=== PATIENT | female | born 1980 | race Two or more races ===

== ENCOUNTER 2021-04-21 18:14 | Emergency (ER) | payer SELFPAY ==
[~2021-04-21] VITALS: Ht 165.1 cm; Wt 90.9 kg
[2021-04-21] MEDS ORDERED: ACETAMINOPHEN 325 MG TABLET. PO ONE (20:15)
[2021-04-21 20:17] LABS: BILIRUBIN,URINE NEGATIVE (NEG); CLARITY,URINE CLOUDY; COLOR,URINE YELLOW; NITRITE,URINE NEGATIVE (NEG); PH,URINE 6.5 (<5.0-8.0); PROTEIN,URINE NEGATIVE (NEG-TRACE)
[2021-04-21 20:23] LABS: BACTERIA,URINE MANY /HPF (0-FEW)
[2021-04-21 20:24] LABS: RBC,URINE OCC /HPF (0-2); WBC,URINE OCC /HPF (0-4)
--- NOTE | 2021-04-21 20:37 | PHYS DOC ---
Past Medical History Past Surgical History: No Surgical History Smoking Status: Never Smoker Alcohol Use: None General Adult EDM: Chief Complaint: PELVIC PAIN HPI: HPI: Patient is a 40 year old female who presents with pelvic pain that began yesterday. Patient rates her pain currently 7/10 intermittent cramping. Patient states her symptoms began gradually and are gotten worse since yesterday. She reports her last menstrual period as 01/21/2021 and believes she may be . She additionally states she has some white vaginal discharge that is without odor and normal in consistency. She denies fever, chills, vaginal spotting, bleeding, itching, dyspareunia and dysuria, but reports urgency and frequency. She has not taken any medications in effort to relieve her pain, but report walking exacerbates her pain. Patient has no other complaints at this time. Review of Systems: Review of Systems: Constitutional: See HPI Respiratory: Denies cough or shortness of breath. Cardiovascular: Denies chest pain or edema. GI: Denies abdominal pain, nausea, vomiting, bloody stools or diarrhea. : See HPI Heart Score: C/O Chest Pain: No Current Medications: Current Medications Medications (Trade) Dose Ordered Sig/Sadiq Start Time Stop Time Status Last Admin Dose Admin Acetaminophen (Tylenol) 650 mg 1X ONCE 04/21/21 20:15 04/21/21 20:16 DC 04/21/21 20:18 650 MG Allergies: Allergies: Allergies Coded Allergies Type Severity Reaction Last Updated Verified No Known Drug Allergies 04/21/21 No Physical Exam: PE: Constitutional: Well developed, well nourished, no acute distress, non-toxic appearance. Cardiovascular: Heart rate regular rhythm, no murmur. Lungs & Thorax: Bilateral breath sounds clear to auscultation. Abdomen: Bowel sounds normal, soft, no tenderness, no masses, no pulsatile masses. : Full pelvic exam deferred. Mons pubis without lesion and apropriate, symmetrical hair growth pattern. Labia majora and minora without lesion or rodri thema. Minimal white discharge noted at vaginal introitus without malodor. Skin: Warm, dry, no erythema, no rash. Back: No tenderness, no CVA tenderness. Extremities: No tenderness, no cyanosis, no clubbing, ROM intact, no edema. Neurologic: Alert and oriented x3, normal motor function, normal sensory function, no focal deficits noted. Current Patient Data: Labs: Laboratory Tests Test 04/21/21 19:45 04/21/21 19:53 Urine Collection Type Unknown Urine Color Yellow Urine Clarity Cloudy Urine pH 6.5 (<5.0-8.0) Urine Specific [place] 1.020 (1.000-1.030) Urine Protein Negative mg/dL (NEG-TRACE) Urine Glucose (UA) 250 mg/dL (NEG) Urine Ketones (Stick) Negative mg/dL (NEG) Urine Blood Trace (NEG) Urine Nitrite Negative (NEG) Urine Bilirubin Negative (NEG) Urine Urobilinogen Dipstick 2.0 mg/dL (0.2 mg/dL) Urine Leukocyte Esterase Negative (NEG) Urine RBC Occ /HPF (0-2) Urine WBC Occ /HPF (0-4) Urine Squamous Epithelial Cells Mod /LPF Urine Bacteria Many /HPF (0-FEW) Urine Mucus Mod /LPF POC Urine HCG, Qualitative Hcg positive (Negative) Procedure Result WET PREP Final YEAST NONE SEEN TRICHOMONAS NONE SEEN CLUE CELLS CLUE CELLS PRESENT ALTERED PAMELA ALTERED PAMELA PRESENT SUGGESTIVE OF BACTERIAL VAGINOSIS WBCS OCCASIONAL SQUAMOUS EPS MANY Vital Signs: Vital Signs Date Time Temp Pulse Resp B/P (MAP) Pulse Ox O2 Delivery O2 Flow Rate FiO2 04/21/21 19:37 98.1 97 20 114/82 (93) 99 Room Air 98.1 Radiology/Procedures: Radiology/Procedures: PROCEDURE: TRANSVAGINAL US TRANSVAGINAL History: Reason: PELVIC PAIN / Spl. Instructions: / History: Comparison: None. Technique: Grayscale and color Doppler imaging of the pelvis was performed using transabdominal and transvaginal technique. Findings: The uterus measures 10.8 x 6.3 x 6.4 cm. Single intrauterine gestational sac with regular appearance. Yolk sac is identified. pole is identified with crown-rump length 3.1 cm. Estimated gestational age by ultrasound 10 weeks 0 days. heart rate 178 bpm. No perigestational fluid collection. Estimated date of completion by ultrasound November 17, 2021. Right ovary measures 3.7 x 2.8 x 1.8 cm. Normal Doppler flow to the right ovary. Left ovary not identified due to positioning and overlying structures IMPRESSION: 1. Single intrauterine with gestational age 10 weeks and heart rate 178 bpm. Electronically signed by: Semaj Thomas DO (04/21/2021 9:45 PM) [facility] Course & Med Decision Making: Course & Med Decision Making Pertinent Labs and Imaging studies reviewed. (See chart for details) Patient work-up today confirmed patient suspected . According to reported last menstrual period estimation, gestational age is 12 weeks 6 days. Additionally, wet prep shows BV. Patient will be reassured that the is confirmed with adequate growth and heart rate. She will be prescribed with metronidazole to treat bacterial vaginosis. She will need to follow with instructional designer for care. Patient states that she called the [facility], and they did not have an appointment for the next month. She will also be provided with contact information for instructional designer here at [facility] as well as contact information for the [facility] clinics. Patient understands and is agreeable to discharge plan. Dragon Disclaimer: Arn[place] Disclaimer: This electronic medical record was generated, in whole or in part, using a voice recognition dictation system. Departure Departure Impression: Primary Impression: Bacterial vaginosis in Additional Impression: with uncertain dates in first trimester Disposition: 01 HOME / SELF CARE / HOMELESS Condition: STABLE Referrals: NO PCP (PCP) ADRIENNE THOMAS MD Patient Instructions: ABCs of , Abdominal Pain During , [id number], Bacterial Vaginosis, [id number] Additional Instructions: Please take the full course of antibiotics you are prescribed today. It is important for you to establish care for further gestational age and due date information, as well as regular screening during . As discussed, contact information for an instructional designer at [facility] as well as phone number for the [facility] clinics is provided. Please return to the emergency department should your pelvic pain persist, or you develop new vaginal symptoms. Scripts Ondansetron Hcl (ZOFRAN) 4 Mg Tablet 1 TAB PO PRN Q6-8HRS, #30 TAB Take 1 tablet by mouth every 6-8 hours as needed for nausea. Prov: MARII MURRAY 04/21/21 Metronidazole (METRONIDAZOLE) 500 Mg Tablet 1 TAB PO BID for 7 Days, #14 TAB 0 Refills Take 1 tablet by mouth twice a day for 7 days. Please be sure to take full course of antibiotics. If GI upset occurs, take with food. Prov: MARII MURRAY 04/21/21 MARII MURRAY Apr 21, 2021 20:37
[2021-04-21 21:30] VITALS: BP 157/76
--- NOTE | 2021-04-21 21:47 | RAD ---
US TRANSVAGINAL History: Reason: PELVIC PAIN / Spl. Instructions: / History: Comparison: None. Technique: Grayscale and color Doppler imaging of the pelvis was performed using transabdominal and t ransvaginal technique. Findings: The uterus measures 10.8 x 6.3 x 6.4 cm. Single intrauterine gestational sac with regular appearance. Yolk sac is identified. pole is id entified with crown-rump length 3.1 cm. Estimated gestational age by ultrasound 10 weeks 0 days. Feta l heart rate 178 bpm. No perigestational fluid collection. Estimated date of completion by ultrasound November 17, 2021. Right ovary measures 3.7 x 2.8 x 1.8 cm. Normal Doppler flow to the right ovary. Left ovary not identified due to positioning and overlying structures IMPRESSION: 1. Single intrauterine with gestational age 10 weeks and heart rate 178 bpm. Electronically signed by: Semaj Barth DO (04/21/2021 9:45 PM) [facility]
[2021-04-21] MEDS ORDERED: METR-34 PO (22:07)
[2021-04-21] MEDS ORDERED: ONDA4TAB7 PO (22:07)
== END 2021-04-21 22:20 | disposition home or self-care (01) ==
LOC: ER 18:14
DX: O23.591 Infection of other part of genital tract in pregnancy, first trimester (principal); B96.89 Other specified bacterial agents as the cause of diseases classified elsewhere; Z3A.10 10 weeks gestation of pregnancy
CPT/HCPCS: 76830; 81001; 81025; 87086; 99284; Q0111